=== PATIENT | male | born 1980 | race Caucasian/White ===

== ENCOUNTER 2020-02-03 16:12 | Emergency (ER) | payer OTHER ==
[2020-02-03] MEDS ORDERED: Sodium Chloride 0.9% 1000 ML 1,000 ML IV STA (16:30)
[2020-02-03] MEDS ORDERED: Sodium Chloride 0.9% 1000 ML 1,000 ML ONE (16:34)
--- NOTE | 2020-02-03 16:39 | ERPHSYRPT ---
- History of Present Illness Time Seen by Provider: 02/03/20 16:36 Source: patient Exam Limitations: no limitations Patient Subjective Stated Complaint: Son tested positive for covid and he now has a cough and body aches Triage Nursing Assessment: Pt drove self to the ER, hypertensive, injured right shoulder last week and continues to have pain, coughing with reddish/brown sputum, lungs clear, skin diaphoretic, body aches, spent last 4 days in bed Physician History: Son tested positive for covid and he now has a cough and body aches injured right shoulder last week and continues to have pain, coughing with reddish/brown sputum, lungs clear, skin diaphoretic, body aches, spent last 4 days in bed Timing/Duration: day(s) (four) Cough Quality/Degree: productive cough, sputum, blood streaked sputum Possible Cause: no prior episodes Associated Symptoms: cough, headache, muscle aches, No fever Allergies/Adverse Reactions: No Known Drug Allergies Allergy (Verified 02/03/20 16:33) Home Medications: Labetalol HCl [Trandate] 200 mg PO DAILY 02/03/20 [History] Paroxetine HCl 20 mg [Paxil 20 MG] 20 mg PO DAILY 02/03/20 [History] Travel Risk - International Travel Have you traveled outside of the country in past 3 weeks: No - Coronavirus Screening Are you exhibiting any of the following symptoms?: Yes Symptoms: Cough: New Onset, Headaches/Body Aches/Fatigue Close contact with a COVID-19 positive Pt in past 14-21 Days: Yes - Review of Systems Constitutional: No Fever, No Chills Eyes: No Symptoms Ears, Nose, & Throat: No Symptoms Respiratory: Cough, No Dyspnea Cardiac: No Chest Pain, No Edema, No Syncope Abdominal/Gastrointestinal: No Abdominal Pain, No Nausea, No Vomiting, No Diarrhea Genitourinary Symptoms: No Dysuria Musculoskeletal: No Back Pain, No Neck Pain Skin: No Rash Neurological: No Dizziness, No Focal Weakness, No Sensory Changes Psychological: No Symptoms Endocrine: No Symptoms All Other Systems: Reviewed and Negative - Past Medical History Pertinent Past Medical History: Yes Cardiac History: Hypertension - Past Surgical History Past Surgical History: Yes Musculoskeletal: Orthopedic Surgery - Social History Smoking Status: Never smoker Exposure to second hand smoke: No Drug Use: marijuana Patient Lives Alone: No - Nursing Vital Signs Nursing Vital Signs: Initial Vital Signs Temperature 97.9 F 02/03/20 16:21 Pulse Rate 91 H 02/03/20 16:21 Blood Pressure 159/115 02/03/20 16:21 O2 Sat by Pulse Oximetry 97 02/03/20 16:21 Pain Scale Pain Intensity 7 - Physical Exam General Appearance: no apparent distress, alert Eye Exam: PERRL/EOMI, eyes nml inspection Ears, Nose, Throat Exam: normal ENT inspection, TMs normal, pharynx normal, moist mucous membranes Neck Exam: normal inspection, non-tender, supple, full range of motion Respiratory Exam: diminished breath sounds, No respiratory distress Cardiovascular Exam: regular rate/rhythm, normal heart sounds Gastrointestinal/Abdomen Exam: soft, No tenderness Back Exam: normal inspection, No CVA tenderness, No vertebral tenderness Extremity Exam: normal inspection, normal range of motion Neurologic Exam: alert, oriented x 3, cooperative, normal mood/affect, sensation nml, No motor deficits Skin Exam: normal color, warm, dry, No rash Lymphatic Exam: No adenopathy SpO2: 97 - Course Nursing assessment & vital signs reviewed: Yes - Radiology Exams Chest X-ray Interpretation: Reviewed by me (no acute infiltrate), Negative, No Pneumonia Ordered Tests: Active Orders 24 hr Category Date Time Status CHEST 2 VIEWS (PA AND LAT) Stat Exams 02/03/20 16:31 Taken BLOOD CULTURE Stat Lab 02/03/20 14:50 Received CBC W DIFF Stat Lab 02/03/20 14:50 Completed CMP Stat Lab 02/03/20 14:50 Received Manual Differential NC Stat Lab 02/03/20 14:50 Completed Medication Summary Generic Name Dose Route Start Last Admin Trade Name Freq PRN Reason Stop Dose Admin Azithromycin 500 mg in 250 mls @ 250 mls/hr 02/03/20 17:22 Zithromax 500 Mg/ 250 Ml Nacl Premix IV 02/03/20 18:21 STAT ONE Discontinued Medications Generic Name Dose Route Start Last Admin Trade Name Freq PRN Reason Stop Dose Admin Sodium Chloride 1,000 mls @ 999 mls/hr 02/03/20 16:30 02/03/20 16:35 Sodium Chloride 0.9% 1000 Ml IV 02/03/20 17:30 999 mls/hr .Q1H1M STA Administration Sodium Chloride Confirm 02/03/20 16:34 Sodium Chloride 0.9% 1000 Ml Administered 02/03/20 16:35 Dose 1,000 mls @ ud .ROUTE .STK-MED ONE Lab/Rad Data: Laboratory Result Diagrams 02/03/20 14:50 Laboratory Results 02/03/20 Range/Units 14:50 WBC 7.8 (4.0-10.5) K/mm3 RBC 5.37 (4.1-5.6) M/mm3 Hgb 15.8 (12.5-18.0) gm/dl Hct 47.6 (42-50) % MCV 88.6 (78-100) fl MCH 29.4 (26-32) pg MCHC 33.2 (32-36) g/dl RDW 14.3 H (11.5-14.0) % Plt Count 300 (150-450) K/mm3 MPV 11.8 H (7.5-11.0) fl - Progress Progress: unchanged Air Movement: good Antibiotics given: Yes Counseled pt/family regarding: lab results, diagnosis, need for follow-up, rad results - Departure Departure Disposition: Home Clinical Impression: Suspected COVID-19 virus infection, Counseled about COVID-19 virus infection, Bronchitis Condition: Stable Critical Care Time: No Referrals: MARGARITO HAMILTON [Primary Care Provider] - Instructions: Coronavirus Disease 2019 (COVID-19) (DC) Forms: Work/School Release Form Prescriptions: Methylprednisolone Packet [Medrol Dosepack] 4 mg PO UD #30 packet Azithromycin [Zithromax] 250 mg PO UD #6 tablet
[2020-02-03 17:14] LABS: Hematocrit 47.6 % (42-50); Hemoglobin 15.8 gm/dl (12.5-18.0); Mean Cell Volume 88.6 fl (78-100); Mean Corpuscular Hemoglobin 29.4 pg (26-32); Mean Corpuscular Hgb Concent. 33.2 g/dl (32-36); Mean Platelet Volume 11.8 fl (7.5-11.0); Platelet Count 300 K/mm3 (150-450); Red Blood Count 5.37 M/mm3 (4.1-5.6); Red Cell Distribution Width 14.3 % (11.5-14.0); White Blood Count 7.8 K/mm3 (4.0-10.5)
[2020-02-03] MEDS ORDERED: Zithromax 500 MG/ 250 ML NaCl Premix 500 MG/250 ML IVPB IV ONE ×2 (17:22→17:33)
[2020-02-03 17:37] LABS: ALBUMIN 4.6 g/dL (3.5-5.0); ALKALINE PHOSPHATASE 97 U/L (38-126); ANION GAP 14.5 MEQ/L (5-15); BLOOD UREA NITROGEN 17 mg/dL (9-20); CHLORIDE 102 mmol/L (98-107); Calcium 9.4 mg/dL (8.4-10.2); Carbon Dioxide 26 mmol/L (22-30); Creatinine 1 1.05 mg/dL (0.66-1.25); EST GLOMERULAR FILTRATION RATE > 60.0 ML/MIN; Glucose 83 mg/dL (74-106); Potassium 3.9 mmol/L (3.5-5.1); SGOT/AST 26 U/L (17-59); SGPT/ALT 26 U/L (0-50); SODIUM 139 mmol/L (137-145); Total Protein 8.7 g/dL (6.3-8.2)
[2020-02-03 18:04] LABS: Lymphocytes 28 % (24-44); Monocyte 6 % (0.0-12.0); Neutrophils 66 % (36.-66.); Platelet Estimate NORMAL (NORMAL); Total Cells Counted 100
[2020-02-03 18:22] VITALS: BP 150/103; PULSE 96; O2SAT 96
--- NOTE | 2020-02-03 18:40 | XRAY ---
Indication: Cough one week. Comparison: None PA/lateral chest hyperinflated with medial left lower lobe infiltrate versus atelectasis. Remaining heart, lungs, and bony thorax unremarkable.
== END 2020-02-03 18:38 | disposition home or self-care (01) ==
LOC: ED 16:12
DX: Z20.828 Contact with and (suspected) exposure to other viral communicable diseases (principal); J40 Bronchitis, not specified as acute or chronic; R05 Cough; R51.9 Headache, unspecified; M79.10 Myalgia, unspecified site; R53.83 Other fatigue
CPT/HCPCS: 36415; 71046; 80053; 85025; 87040; 96360; 96365; 99284; J0456

== ENCOUNTER 2020-12-19 21:07 | Emergency (ER) | payer OTHER ==
[2020-12-19] MEDS ORDERED: BACTRIM DS TABLET PO STA (21:43)
[2020-12-19] MEDS ORDERED: BACTRIM DS TABLET PO ONE (21:46)
--- NOTE | 2020-12-19 22:13 | ERPHSYRPT ---
- History of Present Illness Time Seen by Provider: 12/19/20 21:35 Source: patient Exam Limitations: no limitations Patient Subjective Stated Complaint: pt states he had a cyst or abscess on his back and his friend tried to cut it out, now its infected. states today he has had some nausea and diarrhea, body aches, and headache. Triage Nursing Assessment: pt alert and oriented. answers questions approp. pt ambulatory with steady gait noted. respirations nonlabored. skin pink warm and dry. indurated area to mid back approx 3x2cm with redness noted. wound bed yellow approx 0.5x1cm. no drainage noted. Physician History: Patient is a 40-year-old male presents to our ED for evaluation of an infected abscess to his back. Patient states he had a back abscess. Patient's friend is a medic and told him that he can drain it. The abscess was drained 5 days ago by his friend. Patient states the area has progressively gotten tender and red. No fever. Patient states he has some body aches mild nausea and mild headache. He is not requesting medical management of the symptoms he is strictly requesting treatment for his infected abscess. Symptoms are mild to moderate in intensity. No specific worsening improving factors. Tetanus is up-to-date. Patient voices no other complaints at this time. Patient declined pain medication. Timing/Duration: today Severity: moderate Modifying Factors: Improves With: nothing Associated Symptoms: denies symptoms Allergies/Adverse Reactions: No Known Drug Allergies Allergy (Verified 12/19/20 21:41) Hx Tetanus, Diphtheria Vaccination/Date Given: Yes Hx Influenza Vaccination/Date Given: No Hx Pneumococcal Vaccination/Date Given: No Immunizations Up to Date: Yes Travel Risk - International Travel Have you traveled outside of the country in past 3 weeks: No - Coronavirus Screening Are you exhibiting any of the following symptoms?: Yes Symptoms: Vomiting/Diarrhea, Headaches/Body Aches/Fatigue Close contact with a COVID-19 positive Pt in past 14-21 Days: No - Vaccine Status Have you recieved a Covid-19 vaccination: Yes Dandy Tender: Unknown - Vaccination Dates Dates if Unknown: 2020 - Review of Systems Constitutional: No Symptoms, No Fever, No Chills Eyes: No Symptoms Ears, Nose, & Throat: No Symptoms Respiratory: No Symptoms, No Cough, No Dyspnea Cardiac: No Symptoms, No Chest Pain, No Edema, No Syncope Abdominal/Gastrointestinal: No Symptoms, No Abdominal Pain, No Nausea, No Vomiting, No Diarrhea Genitourinary Symptoms: No Symptoms, No Dysuria Musculoskeletal: No Symptoms, No Back Pain, No Neck Pain Skin: No Symptoms, No Rash Neurological: No Symptoms, No Dizziness, No Focal Weakness, No Sensory Changes Psychological: No Symptoms Endocrine: No Symptoms Hematologic/Lymphatic: No Symptoms Immunological/Allergic: No Symptoms All Other Systems: Reviewed and Negative - Past Medical History Pertinent Past Medical History: Yes Neurological History: Seizures Cardiac History: Hypertension - Past Surgical History Past Surgical History: Yes Musculoskeletal: Orthopedic Surgery Other Surgical History: lt arm surgery - Social History Smoking Status: Never smoker Exposure to second hand smoke: No Drug Use: marijuana Patient Lives Alone: No - Nursing Vital Signs Nursing Vital Signs: Initial Vital Signs Temperature 98.5 F 12/19/20 21:27 Pulse Rate 102 H 12/19/20 21:27 Respiratory Rate 16 12/19/20 21:27 Blood Pressure 136/83 12/19/20 21:27 O2 Sat by Pulse Oximetry 98 12/19/20 21:27 Pain Scale Pain Intensity 4 - Physical Exam General Appearance: no apparent distress, alert Eye Exam: PERRL/EOMI, eyes nml inspection Ears, Nose, Throat Exam: normal ENT inspection, TMs normal, pharynx normal, moist mucous membranes Neck Exam: normal inspection, non-tender, supple, full range of motion Respiratory Exam: normal breath sounds, lungs clear, No respiratory distress Cardiovascular Exam: regular rate/rhythm, normal heart sounds, normal peripheral pulses Gastrointestinal/Abdomen Exam: soft, normal bowel sounds, No tenderness, No mass Back Exam: normal inspection, normal range of motion, No CVA tenderness, No vertebral tenderness Extremity Exam: normal inspection, normal range of motion, pelvis stable Neurologic Exam: alert, oriented x 3, cooperative, normal mood/affect, nml cerebellar function, nml station & gait, sensation nml, No motor deficits Skin Exam: normal color, warm, dry, other (Mid back just right to midline is a wound with a necrotic base that measures 1 x 1.5. There is a rim of cellulitis that measures 2 x 3 cm.), No rash Lymphatic Exam: No adenopathy SpO2 Interpretation: normal SpO2: 98 O2 Delivery: Room Air - Course Nursing assessment & vital signs reviewed: Yes Ordered Tests: Medication Summary Discontinued Medications Generic Name Dose Route Start Last Admin Trade Name Chris PRN Reason Stop Dose Admin Trimethoprim/Sulfamethoxazole 1 tab 12/19/20 21:43 12/19/20 21:47 Bactrim Ds Tablet PO 12/19/20 21:44 1 tab STAT STA Administration Trimethoprim/Sulfamethoxazole Confirm 12/19/20 21:46 Bactrim Ds Tablet Administered 12/19/20 21:47 Dose 1 tab PO .STK-MED ONE - Progress Progress: improved Progress Note: Patient received a dose of Bactrim in our ED. A prescription for the same was forwarded to patient's pharmacy. Patient declined pain medication. Patient advised to follow-up with his primary care doctor on Wednesday for reevaluation. Patient voiced no other complaints at this time. Will discharge home. Portions of this note were created with voice recognition technology. There may be grammatical, spelling, punctuation or sound alike errors 12/19/20 22:15 Counseled pt/family regarding: diagnosis, need for follow-up - Departure Departure Disposition: Home Clinical Impression: Cellulitis, Abscess Condition: Stable Critical Care Time: No Referrals: MARGARITO HAMILTON [Primary Care Provider] - Additional Instructions: Discharge/Care Plan HILDA RASMUSSEN was seen on 12/19/20 in the Emergency Room. The patient was counseled regarding Diagnosis,Lab results, Imaging studies, need for follow up and when to return to the Emergency Room. Prescriptions given: Discharge Note I have spoken with the patient and/or caregivers. I have explained the patient's condition, diagnosis and treatment plan based on the information available to me at this time. I have answered the patient's and/or caregiver's questions and addressed any concerns. The patient and/or caregivers have as good understanding of the patient's diagnosis, condition and treatment plan as can be expected at this point. The vital signs have been stable. The patient's condition is stable and appropriate for discharge from the emergency department. The patient will pursue further outpatient evaluation with the primary care physician or other designated or consulting physician as outlined in the discharge instructions. The patient and/or caregivers are agreeable to this plan of care and follow-up instructions have been explained in detail. The patient and/or caregivers have received these instruction. The patient/and or caregivers are aware that any significant change in condition or worsening of symptoms should prompt an immediate return to this or the closest emergency department or call 911. Prescriptions: Smz/Tmp Ds Tablet [Bactrim Ds Tablet] 1 udtab PO BID 7 Days #14 tablet
[2020-12-19 22:22] VITALS: BP 128/81; PULSE 91; O2SAT 99
== END 2020-12-19 22:24 | disposition home or self-care (01) ==
LOC: ED 21:07
DX: L03.312 Cellulitis of back [any part except buttock and flank] (principal); L02.212 Cutaneous abscess of back [any part, except buttock and flank]
CPT/HCPCS: 99283; A9270-GY

== ENCOUNTER 2023-06-26 17:21 | Emergency (ER) | payer OTHER ==
[2023-06-26 17:33] VITALS: TEMP 98.5
[2023-06-26] MEDS ORDERED: Sodium Chloride 0.9% 1000 ML 1,000 ML ONE (17:44)
[2023-06-26 17:47] LABS: Absolute Neutrophil Ct (ANC) 7.52 x10^3/uL (1.4-6.9); BASOPHIL % 0.6 % (0.0-0.4); Basophil (Absolute #) 0.06 x10^3/uL (0-0.4); Eosinophil % 1.2 % (0.00-5.0); Eosinophil (Absolute #) 0.12 x10^3/uL (0-0.5); Hematocrit 32.6 % (42-50); Hemoglobin 9.7 g/dL (12.5-18.0); IMMATURE GRAN # 0.03 x10^3u/L (0.00-0.03); IMMATURE GRAN % 0.3 % (0.00-0.4); Lymphocyte (Absolute #) 2.15 x10^3/uL (1.0-4.6); Lymphocytes % 20.8 % (24.0-44.0); Mean Cell Volume 72.8 fL (78-100); Mean Corpuscular Hemoglobin 21.7 pg (26-32); Mean Corpuscular Hgb Concent. 29.8 g/dL (32-36); Mean Platelet Volume 10.6 fL (7.5-11.0); Monocyte (Absolute #) 0.47 x10^3/uL (0.0-1.3); Monocytes % 4.5 % (0.0-12.0); Neutrophil % 72.6 % (36.0-66.0); Platelet Count 357 x10^3/uL (150-450); Red Blood Count 4.48 x10^6/uL (4.1-5.6); Red Cell Distribution Width 19.4 % (11.5-14.0); White Blood Count 10.4 x10^3/uL (4.0-10.5)
[2023-06-26] MEDS: Sodium Chloride 0.9% 1000 ML 1,000 ML IV STA (17:47)
[2023-06-26 18:02] LABS: BILIRUBIN,TOTAL 0.2 mg/dL (0.2-1.3); Calcium 9.3 mg/dL (8.4-10.2); Creatinine 1 1.09 mg/dL (0.66-1.25); EST GLOMERULAR FILTRATION RATE 86.4 ML/MIN; Potassium 4.6 mmol/L (3.5-5.1); Total Protein 7.1 g/dL (6.3-8.2)
--- NOTE | 2023-06-26 18:27 | ERPHSYRPT ---
- History of Present Illness Time Seen by Provider: 06/26/23 17:30 Historian: patient Exam Limitations: no limitations Patient Subjective Stated Complaint: Pt states that he hasn't had a bowel movement in 2 weeks and is having pain in his rib area Triage Nursing Assessment: Pt brought self to the ER, hypertensive, rates upper pain in the ribs and in the back as 8/10, pulses normal, skin n/w/d, N&V earlier today, has more pain when he eats, denies chest pain or difficulty breathing, bowel sounds heard in all 4 quadrants, doesn't appear to be in any distress Physician History: 42yo m presents via private vehicle for abdominal pain. Pt reports he has not had a bowel movement in 2wks. Pt does report passing flatus daily. Pt reports his appetite has decreased because eating worsens his abdominal pain. Pt reports his pain is more in the epigastric region and does intermittently radiate into his midback. Pt denies any n/v/d, cp, soa, LANTIGUA, dysuria, hematemesis, hematochezia. Pt takes amphetamine daily for ADHD. Pt states he has tried multiple OTC laxatives over the past week. Timing/Duration: week(s) (2) Activities at Onset: none Quality: cramping Abdominal Pain Onset Location: epigastric Pain Radiation: back Severity of Pain-Max: mild Severity of Pain-Current: mild Modifying Factors: Worsens With: eating Associated Symptoms: back, No chest pain, No diaphoresis, No diarrhea, No dolores sea, No shortness of breath, No vomiting Previous symptoms: same symptoms as today Allergies/Adverse Reactions: No Known Drug Allergies Allergy (Verified 06/26/23 17:33) Home Medications: Dextroamphetamine/Amphetamine [Dextroamp-Amphetamin 30 mg Tab] 30 mg PO DAILY 06/26/23 [History] Labetalol HCl 100 mg [Trandate 100 MG] 200 mg PO DAILY 06/26/23 [History] Hx Tetanus, Diphtheria Vaccination/Date Given: Yes Hx Influenza Vaccination/Date Given: No Hx Pneumococcal Vaccination/Date Given: No Travel Risk - International Travel Have you traveled outside of the country in past 3 weeks: No - Emerging Infectious Disease Are you exhibiting symptoms associated with any current EIDs: No - Review of Systems Constitutional: No Symptoms Respiratory: No Symptoms Cardiac: No Symptoms Abdominal/Gastrointestinal: Abdominal Pain, Constipation, No Nausea, No Vomiting, No Diarrhea, No Hematemesis, No Hematochezia, No Melena Genitourinary Symptoms: No Symptoms Musculoskeletal: No Symptoms, No Injury - Past Medical History Pertinent Past Medical History: Yes Neurological History: Seizures Cardiac History: Hypertension - Past Surgical History Past Surgical History: Yes Musculoskeletal: Orthopedic Surgery Other Surgical History: lt arm surgery - Social History Smoking Status: Never smoker Exposure to second hand smoke: No Drug Use: marijuana Patient Lives Alone: No - Nursing Vital Signs Nursing Vital Signs: Initial Vital Signs Temperature 98.5 F 06/26/23 17:24 Pulse Rate 89 06/26/23 17:24 Blood Pressure 167/113 06/26/23 17:24 O2 Sat by Pulse Oximetry 99 06/26/23 17:24 Pain Scale Pain Intensity 8 - Physical Exam General Appearance: no apparent distress Respiratory Exam: normal breath sounds, lungs clear, airway intact, No chest tenderness, No respiratory distress Cardiovascular Exam: regular rate/rhythm, normal heart sounds, normal peripheral pulses Gastrointestinal/Abdomen Exam: soft, normal bowel sounds, No tenderness, No distention, No mass, No guarding, No rebound Rectal Exam: deferred Back Exam: normal inspection, No CVA tenderness, No vertebral tenderness Neurologic Exam: alert, oriented x 3, cooperative SpO2 Interpretation: normal SpO2: 99 O2 Delivery: Room Air - Course EKG Interpreted by Me: RATE (88), Sinus Rhythm, Non-specific ST Changes, Other (qtcb [id number]; not suggestive of ischemia) Ordered Tests: Active Orders 24 hr Category Date Time Status ABDOMEN AND PELVIS W CONTRAST [CT] Stat Exams 06/26/23 17:37 Completed CBC W DIFF Stat Lab 06/26/23 17:43 Completed CMP Stat Lab 06/26/23 17:43 Completed LIPASE Stat Lab 06/26/23 17:43 Completed TROPONIN Q4H Lab 06/26/23 17:43 Completed TROPONIN Q4H Lab 06/26/23 21:45 Ordered TROPONIN Q4H Lab 06/27/23 01:45 Ordered Medication Summary Discontinued Medications Generic Name Dose Route Start Last Admin Trade Name Freq PRN Reason Stop Dose Admin Sodium Chloride 1,000 mls @ 999 mls/hr 06/26/23 17:36 06/26/23 18:55 Sodium Chloride 0.9% 1000 Ml IV 06/26/23 18:36 Infused .Q1H1M STA Infusion Sodium Chloride Confirm 06/26/23 17:44 Sodium Chloride 0.9% 1000 Ml Administered 06/26/23 17:45 Dose 1,000 mls @ ud .ROUTE .[facility] ONE Magnesium Citrate Confirm 06/26/23 19:40 Magnesium Citrate 296 Ml Solution Administered 06/26/23 19:41 Dose 296 ml .ROUTE .STK-MED ONE Lab/Rad Data: Laboratory Result Diagrams 06/26/23 17:43 06/26/23 17:43 Laboratory Results 06/26/23 06/26/23 06/26/23 Range/Units 17:43 17:43 17:43 WBC 10.4 (4.0-10.5) x10^3/uL RBC 4.48 (4.1-5.6) x10^6/uL Hgb 9.7 L (12.5-18.0) g/dL Hct 32.6 L (42-50) % MCV 72.8 L (78-100) fL MCH 21.7 L (26-32) pg MCHC 29.8 L (32-36) g/dL RDW 19.4 H (11.5-14.0) % Plt Count 357 (150-450) x10^3/uL MPV 10.6 (7.5-11.0) fL Gran % 72.6 H (36.0-66.0) % Immature Gran % (Auto) 0.3 (0.00-0.4) % Nucleat RBC Rel Count 0.0 (0.00-0.1) % Eos # (Auto) 0.12 (0-0.5) x10^3/uL Immature Gran # (Auto) 0.03 (0.00-0.03) x10^3u/L Absolute Lymphs (auto) 2.15 (1.0-4.6) x10^3/uL Absolute Monos (auto) 0.47 (0.0-1.3) x10^3/uL Absolute Nucleated RBC 0.00 (0.00-0.01) x10^3u/L Lymphocytes % 20.8 L (24.0-44.0) % Monocytes % 4.5 (0.0-12.0) % Eosinophils % 1.2 (0.00-5.0) % Basophils % 0.6 (0.0-0.4) % Absolute Granulocytes 7.52 H (1.4-6.9) x10^3/uL Basophils # 0.06 (0-0.4) x10^3/uL Sodium 137 (135-145) mmol/L Potassium 4.6 (3.5-5.1) mmol/L Chloride 102 (98-107) mmol/L Carbon Dioxide 29 (22-30) mmol/L Anion Gap 11.0 (5-15) MEQ/L BUN 19 (9-20) mg/dL Creatinine 1.09 (0.66-1.25) mg/dL Estimated GFR 86.4 ML/MIN Glucose 110 H (74-106) mg/dL Calcium 9.3 (8.4-10.2) mg/dL Total Bilirubin 0.20 (0.2-1.3) mg/dL AST 15 L (17-59) U/L ALT 12 (0-50) U/L Alkaline Phosphatase 99 (38-126) U/L Troponin I < 0.012 (0.000-0.033) ng/mL Serum Total Protein 7.1 (6.3-8.2) g/dL Albumin 4.0 (3.5-5.0) g/dL Lipase 57 (23-300) U/L - Progress Progress: improved Progress Note: 06/26/23 19:35 CT abd/pel 1. Stomach containing hiatal hernia with wall thickening and paraesophageal lymph nodes. Wall thickening may be secondary to under distention and hernia; however, malignancy cannot be ruled out, recommend further workup with endoscopy. 2. A small subcapsular spleen cysts 3. Two tiny non-obstructing stones in left kidney 4. Right renal cysts, Bosniak 1 06/26/23 19:[address] findings w/ patient, states his hiatal hernia is chronic and he has EGD scheduled for futher evaluation did see some stool burden on imaging that radiology did not remark on, no sign of obstruction pt resting comfortably, no pain at this time plan to give mag citrate as laxative, plan to dc home recommend close PCP f/u with Dr Dhillon instructed to use OTC miralax 1 cap daily to assist in regulating bowel movements return to ED if: unable to tolerate PO intake, stop passing flatus, develop bloody stools or bloody vomiting, develop chest pain or shortness of breath Counseled pt/family regarding: lab results, diagnosis, need for follow-up, rad results Medical Desision Making - Diagnostic Testing Diagnostic test were ordered, analyzed, and reviewed by me: Yes Radiological Interpretation: Reviewed by me, Teleradiologist Report - Risk of complications Minimal Risk: Minimal risk of morbidity - Departure Departure Disposition: Home Clinical Impression: Hiatal hernia Constipation Qualifiers: Constipation type: unspecified constipation type Qualified Code(s): K59.00 - Constipation, unspecified Condition: Stable Critical Care Time: No Referrals: JASMIN DHILLON [Primary Care Provider] - Follow up/PCP as directed Additional Instructions: plan to give mag citrate as laxative, plan to dc home recommend close PCP f/u with Dr Dhillon instructed to use OTC miralax 1 cap daily to assist in regulating bowel movements return to ED if: unable to tolerate PO intake, stop passing flatus, develop bloody stools or bloody vomiting, develop chest pain or shortness of breath
[2023-06-26 19:14] VITALS: PULSE 79
--- NOTE | 2023-06-26 19:32 | XRAY ---
CLINICAL HISTORY: abdominal pain COMPARISON: None TECHNIQUE: CT scan of the abdomen and pelvis was performed with 80 cc Isovue 370 IV contrast, Coronal and sagittal reconstructive images were also obtained. One of the following dose reduction techniques were utilized for this exam: Automated exposure control, adjustment of the mA and/or kV according to patient size, use of iterative reconstruction. FINDINGS: Lung bases show bilateral linear subsegmental atelectasis. Stomach containing hiatal hernia is seen with a thick wall measuring up to 1.1 cm. There are also a few calcified and noncalcified small lymph nodes. A small subcapsular hypodense cysts is seen within the upper pole of the spleen measuring 1.3 cm in size. The liver is normal in size without focal parenchymal abnormality. The intrahepatic biliary radicals and the bile ducts are normal. The mid-zone of the left kidney shows 2 non-obstructing small stones measuring 3 and 2 mm. There is also a small hypodense lesion seen within the interpolar segment of the right kidney measuring 1.4 cm. Otherwise, the kidneys are unremarkable. They are normal in size and shape. No hydronephrosis is seen. The gallbladder is normal. No pericholecystic fluid collection or radio dense calculi in the gall bladder. The pancreas, adrenal glands are unremarkable. The ascending colon, the transverse colon, the descending colon, visualized small bowel loops are unremarkable. There is no evidence of significant enlargement of the mesenteric or retroperitoneal lymph nodes. Moderate lumbar spondylosis is seen with multilevel marginal osteophytes. T10-12 vertebrals show mild reduced height of the vertebral corpus up to 10-15 %, likely chronic. Appendix is unremarkable. Pelvis: The urinary bladder is unremarkable. The rectosigmoid colon is unremarkable. The prostate is unremarkable The pelvic vasculature is unremarkable. No evidence of pelvic lymphadenopathy. IMPRESSION: 1. Stomach containing hiatal hernia with wall thickening and paraesophageal lymph nodes. Wall thickening may be secondary to under distention and hernia; however, malignancy cannot be ruled out, recommend further workup with endoscopy. 2. A small subcapsular spleen cysts 3. Two tiny non-obstructing stones in left kidney 4. Right renal cysts, Bosniak 1. Electronically Signed by: Claudia Skinner MD. (06/26/2023 19:27:07 EDT)
[2023-06-26 19:36] VITALS: O2SAT 99
[2023-06-26] MEDS ORDERED: CITROMA 296 ML ONE (19:40)
[2023-06-26 20:14] VITALS: BP 154/106; RESP 20
[2023-06-26] MEDS: CITROMA 296 ML PO ONE (20:16)
== END 2023-06-26 20:20 | disposition home or self-care (01) ==
LOC: ED 17:21
DX: K44.9 Diaphragmatic hernia without obstruction or gangrene (principal); K59.00 Constipation, unspecified; R10.13 Epigastric pain; I10 Essential (primary) hypertension; Z79.899 Other long term (current) drug therapy
CPT/HCPCS: 36415; 74177; 80053; 83690; 84484; 85025; 96360; 99284; A9270-GY

== ENCOUNTER 2023-06-27 03:10 | Emergency (ER) | payer OTHER ==
[2023-06-27 03:21] VITALS: BP 174/104; PULSE 95; RESP 20; TEMP 96.6; O2SAT 98
[2023-06-27] MEDS ORDERED: TYLENOL 325 MG ONE (03:33)
--- NOTE | 2023-06-27 03:37 | ERPHSYRPT ---
- History of Present Illness Time Seen by Provider: 06/27/23 03:30 Historian: patient Exam Limitations: no limitations Patient Subjective Stated Complaint: Pt states "I was here last night for constipation and they gave me a bottle of mag citrate and it is not working." Triage Nursing Assessment: Pt presented alert and oriented X 3, skin pwd. PT ambulates with an upright steady gait, able to speak in clear full sentences. PT resting on the bed holding his abodmen. Physician History: 42yo m presents to ED by private vehicle for constipation. Pt was discharged from ED 6 hours ago after w/u for abdominal pain resulted in diagnosis of hiatal hernia and constipation. Pt was given bottle of mag-citrate, states he took it at home and he has still not had a bowel movement. Pt reports the bottle states that BM should occur w/in 6 hours, so he decided to come back. Pt continues to report abdominal pain, states it is keeping him from sleep. Pt reports passing more flatus since drinking the mag citrate but has not had a BM. Pt currently denies cp, soa, n/v. Timing/Duration: week(s), gradual onset Activities at Onset: none Quality: cramping Abdominal Pain Onset Location: generalized abdomen Pain Radiation: no radiation Severity of Pain-Max: mild Severity of Pain-Current: mild Modifying Factors: Improves With: nothing Associated Symptoms: No back, No chest pain, No diaphoresis, No diarrhea, No fever/chills, No nausea, No vomiting Previous symptoms: same symptoms as today, recently seen, recently treated Allergies/Adverse Reactions: No Known Drug Allergies Allergy (Verified 06/26/23 17:33) Home Medications: Dextroamphetamine/Amphetamine [Dextroamp-Amphetamin 30 mg Tab] 30 mg PO DAILY 06/26/23 [History] Labetalol HCl 100 mg [Trandate 100 MG] 200 mg PO DAILY 06/26/23 [History] Hx Tetanus, Diphtheria Vaccination/Date Given: Yes Hx Influenza Vaccination/Date Given: No Hx Pneumococcal Vaccination/Date Given: No Immunizations Up to Date: No Travel Risk - International Travel Have you traveled outside of the country in past 3 weeks: No - Emerging Infectious Disease Are you exhibiting symptoms associated with any current EIDs: No - Review of Systems Constitutional: No Symptoms, No Fever, No Chills Respiratory: No Symptoms Cardiac: No Symptoms Abdominal/Gastrointestinal: Abdominal Pain, Constipation, No Vomiting, No Diarrhea, No Hematemesis, No Hematochezia, No Appetite Changes Genitourinary Symptoms: No Symptoms - Past Medical History Pertinent Past Medical History: Yes Neurological History: Seizures Cardiac History: Hypertension - Past Surgical History Past Surgical History: Yes Musculoskeletal: Orthopedic Surgery Other Surgical History: lt arm surgery - Social History Smoking Status: Never smoker Exposure to second hand smoke: No Drug Use: marijuana Patient Lives Alone: No - Nursing Vital Signs Nursing Vital Signs: Initial Vital Signs Temperature 96.6 F 06/27/23 03:17 Pulse Rate 95 H 06/27/23 03:17 Respiratory Rate 20 06/27/23 03:17 Blood Pressure 174/104 06/27/23 03:17 O2 Sat by Pulse Oximetry 98 06/27/23 03:17 Pain Scale Pain Intensity 8 - Physical Exam General Appearance: no apparent distress Respiratory Exam: normal breath sounds, lungs clear, airway intact, No chest tenderness Cardiovascular Exam: regular rate/rhythm, normal heart sounds Gastrointestinal/Abdomen Exam: soft, tenderness (mild TTP over epigastric region), No distention, No mass, No guarding, No rebound Rectal Exam: deferred Neurologic Exam: alert, oriented x 3, cooperative SpO2 Interpretation: normal SpO2: 98 O2 Delivery: Room Air Ordered Tests: Medication Summary Discontinued Medications Generic Name Dose Route Start Last Admin Trade Name Kelvinq PRN Reason Stop Dose Admin Acetaminophen 975 mg 06/27/23 03:30 Acetaminophen 325 Mg Tablet PO 06/27/23 03:31 STAT ONE Acetaminophen Confirm 06/27/23 03:33 Acetaminophen 325 Mg Tablet Administered 06/27/23 03:34 Dose 975 mg .ROUTE .STK-MED ONE Glycerin 1 supp.rect 06/27/23 03:29 Glycerin 1 Supp.Rect Adult RC 06/27/23 03:30 STAT ONE - Progress Progress: unchanged Progress Note: 06/27/23 03:34 ordered 1 dose 975mg tylenol PO ordered 1 glycerin suppository per rectum i discussed plan for rectal glycerin suppository and PO tylenol w/ patient who was initially agreeable pt ended up leaving the ED w/o receiving medication, pt did not sign AMA paperwork, did not notify staff that he was leaving Medical Desision Making - Risk of complications Minimal Risk: Minimal risk of morbidity - Departure Departure Disposition: Home Clinical Impression: Constipation Qualifiers: Constipation type: unspecified constipation type Qualified Code(s): K59.00 - Constipation, unspecified Condition: Stable Critical Care Time: No Referrals: JASMIN DHILLON [Primary Care Provider] - Follow up/PCP as directed Additional Instructions: pt left w/o discharge paperwork or medications
[2023-06-27] MEDS: TYLENOL 325 MG PO ONE (03:47)
[2023-06-27] MEDS: GLYCERIN ADULT SUPPOSITORY RC ONE (03:48)
== END 2023-06-27 03:52 | disposition home or self-care (01) ==
LOC: ED 03:10
DX: K59.00 Constipation, unspecified (principal); R10.9 Unspecified abdominal pain; I10 Essential (primary) hypertension; Z79.899 Other long term (current) drug therapy
CPT/HCPCS: 99281; A9270-GY